=== PATIENT | female | born 1965 | race Two or more races ===

== ENCOUNTER 2016-11-09 19:58 | Inpatient (IN) | payer MEDICAID ==
[~2016-11-09] VITALS: Ht 162.6 cm; Wt 75.7 kg
--- NOTE | 2016-11-09 20:04 | NUR ---
51 YO FEMALE BB RA FROM HOME. PT STATES SHE HAD A SYNCOPE EPISODE WHILE HAVING A BOWL MOVEMENT. PT DENIES CP/SOB AT THIS TIME, DENEIS TRAUMA. PT GOWNED, PALCED ON CARDIAC MOPNITOR. AWAITING ORDERS FROM PROVIDER, WILL CONTINUE TO MONITOR
--- NOTE | 2016-11-09 20:10 | NUR ---
MD JEREZM AT BED SIDE FOR EVAL
[2016-11-09] MEDS ORDERED: ONDANSETRON HCL/PF 4 MG/2 ML VIAL ONE (20:26)
[2016-11-09] MEDS ORDERED: IV NS 0.9% 1,000 ML BAG IV ONE ×2 (20:30→21:30)
[2016-11-09] MEDS ORDERED: ONDANSETRON HCL/PF - ER 4 MG/2 ML VIAL IV ONE (20:30)
[2016-11-09 20:45] LABS: BASOPHILS # (AUTO) 0.6 /CMM (0.0-0.2); BASOPHILS % (AUTO) 1.6 % (0.0-2.0); EOSINOPHILS # (AUTO) 0.1 /CMM (0.0-0.7); EOSINOPHILS % (AUTO) 0.2 % (0.0-6.0); HEMATOCRIT 48 % (33-45); HEMOGLOBIN 16.3 g/dL (11.5-14.8); LYMPHOCYTES # (AUTO) 2.6 /CMM (0.8-4.8); LYMPHOCYTES % (AUTO) 7.3 % (20.0-44.0); MEAN CORPUSCULAR HEMOGLOBIN 30 PG (26.0-33.0); MEAN CORPUSCULAR HGB CONC 34 g/dl (31.0-36.0); MEAN CORPUSCULAR VOLUME 89 fL (82-100); MONOCYTES # (AUTO) 2.6 /CMM (0.1-1.30); MONOCYTES % (AUTO) 7.5 % (2.0-12.0); NEUTROPHILS # (AUTO) 29.1 /CMM (1.8-8.9); NEUTROPHILS % (AUTO) 83.4 % (43.0-81.0); PLATELET COUNT (AUTO) 449 /CMM (150-450); RDW COEFFICIENT OF VARIATION 12.1 (11.5-15.0); RED BLOOD CELL COUNT(AUTO) 5.43 MIL/uL (4.0-5.2)
[2016-11-09 20:59] LABS: ALBUMIN 5.1 g/dL (3.4-5.0); BILIRUBIN,DIRECT 0.1 mg/dL (0.0-0.2); BILIRUBIN,TOTAL 0.3 mg/dL (0.2-1.0); CALCIUM, SERUM 10.4 mg/dL (8.5-10.1); CREATININE 1.3 mg/dL (0.6-1.3); POTASSIUM 3.9 mmol/L (3.5-5.1); TOTAL PROTEIN, SERUM 8.9 g/dL (6.4-8.2)
--- NOTE | 2016-11-09 21:00 | NUR ---
PATIENT AMBULATED TO RESTROOM FOR URINE SAMPLE. PT UNABLE TO PROVIDE SAMPLE AT THIS TIME. MD KRAUS NOTIFIED
[2016-11-09] MEDS ORDERED: CIPROFLOXACIN IV RTU 400 MG in PREMIX 1 EA IV STA (21:05)
--- NOTE | 2016-11-09 21:06 | NUR ---
PATIENT TRANSPORTED TO CT VIA GURNEY BY RADIOLOGY TEAM
[2016-11-09] MEDS ORDERED: CIPROFLOXACIN IV RTU 200 ML IV ONE (21:16)
[2016-11-09] MEDS ORDERED: METRONIDAZOLE 500MG/ NS 100ML 100 ML IV ONE (21:16)
[2016-11-09] MEDS ORDERED: FLAGYL/NS RTU 500 MG/100 ML PIGGYBACK IV ONE (21:30)
[2016-11-09 21:40] LABS: BAND % (MANUAL) 6 % (0.0-5.0); LYMPHOCYTES % (MANUAL) 2 % (16-48); MONOCYTES % (MANUAL) 8 % (0-11.0); NEUTROPHILS % (MANUAL) 84 (42-76)
[2016-11-09 21:40] LABS: APPEARANCE,URINE Clear (CLEAR); BILIRUBIN,URINE SMALL (NEGATIVE); BLOOD, URINE Trace-lysed Ery/uL (NEGATIVE); COLOR,URINE Yellow (YELLOW); KETONES,URINE Trace (NEGATIVE); LEUKOCYTE ESTERASE ,URINE Negative (NEGATIVE); NITRITE, URINE Negative (NEGATIVE); PROTEIN,URINE 100 mg/dl (NEGATIVE); UGLUCOSE Negative (NEGATIVE); UROBILINOGEN,URINE 0.2 EU/dL (0.2)
[2016-11-09 21:48] LABS: BACTERIA,URINE Few /HPF (None Seen); RBC,URINE 2-3/HPF /HPF (0-2); SQUAMOUS EPITHELIAL CELL,UR Moderate /HPF (None Seen); WBC,URINE 0-2 /HPF (0-3)
[2016-11-09 21:49] LABS: COARSE GRANULAR CASTS,URINE Few /LPF (None Seen); MUCUS,URINE Many /LPF (None Seen); URINE AMORPHOUS URATE Few /HPF (None Seen)
--- NOTE | 2016-11-09 22:42 | NUR ---
PT TRANSPORTED TO [facility] BED BY EMT WITHOUT INCIDENT
[2016-11-09 23:00] VITALS: BP 121/68
[2016-11-09 23:10] VITALS: BP 121/68
[2016-11-09] MEDS ORDERED: METF500T4 PO (23:51)
[2016-11-09] MEDS ORDERED: ENAL20TA PO (23:51)
--- NOTE | 2016-11-09 23:56 | NUR ---
MS/RN NOTES RECEIVED PT IN STABLE CONDITION. AA&OX 4, UPPER SORBIAN SPEAKING. BREATHING EVENLY ON RA. L AC IV #18G WITH CIPRO IV INFUSING FROM ER. SKIN INTACT, VOIDING WELL, AMBULATING WITH STEADY GAIT. NO CONCERNS MADE. NO C/O ABDOMINAL PAIN, DIARRHEA, VOMITING AT THIS TIME. PT STATES WHEN SHE CAME BACK FROM [facility] 1 WEEK AGO SHE WAS STRESSED D/T HER MOTHER PASSING AWAY. SHE HAD ALLERGIES, DIARRHEA, FEVER AND STARTED COUGHING WITH WHITE PHLEGM UNTIL NOW. SHE TOOK ACETAMINOPHEN AT THAT TIME FOR FLU SYMPTOMS SHE STATED. NO DISTRESS NOTED. BED AT LOWEST POSITION AND LOCKED, HOB SEMI MORA, SIDE TABLE AND CALL SUBRAMANIAN WITHIN REACH. WILL CONTINUE TO MONITOR. FAMILY AT BEDSIDE. JULIANA MENENDEZ, PERSONNEL CONSULTANT.
--- NOTE | 2016-11-10 00:10 | NUR ---
MS/RN NOTES LAB ([facility]) CALLED FOR LACTIC ACID 3.4. WILL LET DR JOHNSON AWARE, AWAITING CALL BACK FOR ADMITTING ORDERS.
[2016-11-10] MEDS ORDERED: ACETAMINOPHEN 325 MG TABLET PO PRN (02:00)
[2016-11-10] MEDS ORDERED: MORPHINE SULFATE INJ 2 MG/ML DISP.SYRIN IV PRN (02:00)
[2016-11-10] MEDS ORDERED: Z GUARD REMEDY 2 OZ OINT TP PRN (02:00)
[2016-11-10] MEDS ORDERED: CIPROFLOXACIN IV RTU 400 MG in PREMIX 1 EA IV SCH (02:00)
[2016-11-10] MEDS ORDERED: ONDANSETRON HCL/PF 4 MG/2 ML VIAL IVP PRN (02:00)
[2016-11-10] MEDS ORDERED: Potassium Chloride 10 MEQ in IV NS 0.9% 1,000 ML IV PRN (02:30)
[2016-11-10] MEDS ORDERED: METRONIDAZOLE 500MG/ NS 100ML 100 ML IV ONE (02:44)
[2016-11-10 04:00] VITALS: BP 97/61
[2016-11-10] MEDS: Potassium Chloride 20 MEQ in IV NS 0.9% 1,000 ML IV PRN ×2 (04:06→20:16)
--- NOTE | 2016-11-10 06:30 | NUR ---
MS/RN NOTES STOOL SPECIMEN COLLECTED, LABELED AND PLACED IN REFRIGERATOR, AWAITING FOR LAB PICK-UP.
[2016-11-10 06:55] LABS: BASOPHILS % (AUTO) 0.3 % (0.0-2.0); EOSINOPHILS % (AUTO) 0.1 % (0.0-6.0); HEMATOCRIT 34 % (33-45); HEMOGLOBIN 11.8 g/dL (11.5-14.8); LYMPHOCYTES # (AUTO) 1.8 /CMM (0.8-4.8); LYMPHOCYTES % (AUTO) 11.3 % (20.0-44.0); MEAN CORPUSCULAR HEMOGLOBIN 30 PG (26.0-33.0); MEAN CORPUSCULAR HGB CONC 35 g/dl (31.0-36.0); MEAN CORPUSCULAR VOLUME 88 fL (82-100); MONOCYTES # (AUTO) 0.8 /CMM (0.1-1.30); NEUTROPHILS # (AUTO) 13.1 /CMM (1.8-8.9); NEUTROPHILS % (AUTO) 83.3 % (43.0-81.0); PLATELET COUNT (AUTO) 326 /CMM (150-450); RDW COEFFICIENT OF VARIATION 12.8 (11.5-15.0); WHITE BLOOD COUNT (AUTO) 15.8 K/uL (4.3-11.0)
[2016-11-10] MEDS ORDERED: DEXTROSE 50%-WATER 50 ML DISP.SYRIN IV PRN (07:00)
--- NOTE | 2016-11-10 07:05 | NUR ---
MS/RN NOTES IVF IN PROGRESS. NO EPISODES OF VOMITING. BM X1 WATERY, SENT TO LAB PER ORDER INCLUDING FOR GIARDIA ANTIGEN. DENIES PAIN AND SLEPT MOST OF NIGHT. ALL NEEDS MET. SIDE TABLE AND CALL SUBRAMANIAN WITHIN REACH. WILL ENDORSE TO AM SHIFT FOR CONTINUITY OF CARE INCLUDING INSULIN ADMINISTRATION FOR BS OF 140. NO CONCERNS MADE AND PATIENT STABLE.
[2016-11-10 07:23] LABS: CALCIUM, SERUM 8.6 mg/dL (8.5-10.1); MAGNESIUM 1.8 mg/dL (1.8-2.4); PHOSPHORUS 4.6 mg/dL (2.5-4.9); POTASSIUM 4.1 mmol/L (3.5-5.1)
--- NOTE | 2016-11-10 07:58 | NUR ---
MED SURGE RN: INITIAL NOTE RECEIVED PT ALERT NAD ORIENTED X4. NO DISTRESS NOTED. NO PAIN NOTED. NO SOB NOTED. L AC #18 RUNNING NS 20MEQ KCL AT 100ML/HR. SITE CLEAR. NO REDNESS, NO INFILTRATION NOTED. NO N/V NOTED. RESTING COMFORTABLY IN BED. CALL LIGHT WITHIN REACH.
[2016-11-10 08:00] VITALS: BP 97/58
--- NOTE | 2016-11-10 08:20 | NUR ---
MS/RN NOTES SPOKE TO PING IN PHARMACY REGARDING FLAGYL SCHEDULED FOR 0200 THIS MORNING. IT WAS EARLY TO GIVE, LAST ONE WAS GIVEN 2135, THEREFORE GAVE NEXT DOSE @ 0424.
[2016-11-10] MEDS: ENALAPRIL MALEATE (10 MG) 10 MG TABLET PO SCH ×2 (08:40→21:00)
[2016-11-10] MEDS: PANTOPRAZOLE 40 MG TABLET.DR PO SCH (08:40)
[2016-11-10] MEDS: METFORMIN 500 MG TABLET PO SCH (08:40)
[2016-11-10] MEDS: BLOOD SUGAR DIAGNOSTIC 1 EACH STRIP IN SCH ×4 (08:47→21:32)
[2016-11-10] MEDS: INSULIN REGULAR, HUMAN 100 UNIT/ML 3 ML VIAL SQ PRN ×2 (08:47→21:34)
[2016-11-10] MEDS: CIPROFLOXACIN IV RTU 400 MG in PREMIX 1 EA IV SCH ×2 (08:53→20:16)
[2016-11-10] MEDS: METRONIDAZOLE 500MG/ NS 100ML 500 MG in PREMIX 1 EA IV SCH ×2 (13:25→21:32)
[2016-11-10 15:09] LABS: OCCULT BLOOD STOOL POSITIVE (NEGATIVE)
[2016-11-10 16:00] VITALS: BP 97/61
--- NOTE | 2016-11-10 18:00 | NUR ---
PT RESTING IN BED TALKING TO FAMILY MEMBERS.DENYING PAIN OR DISTRESS.
--- NOTE | 2016-11-10 19:30 | NUR ---
RN NOTES RECEIVED PATIENT IN BED AWAKE, AO X 3, ABLE TO MAKE NEEDS KNOWN. NO ACUTE DISTRESS NOTED. DENIES ANY PAIN AT THIS TIME. IV SITE PATENT, INTACT; IVF INFUSING ORDERED. SAFETY REMINDERS GIVEN. ON LOW BED WITH BILATERAL UPPER SIDE RAILS UP. CALL LIGHT WITHIN EASY REACH. WILL CONTINUE TO MONITOR.
[2016-11-10 20:00] VITALS: BP 103/68
[2016-11-10 20:36] VITALS: BP 103/68
[2016-11-11] MEDS: METRONIDAZOLE 500MG/ NS 100ML 500 MG in PREMIX 1 EA IV SCH ×2 (05:10→12:15)
--- NOTE | 2016-11-11 06:28 | NUR ---
RN NOTES PATIENT IN BED ASLEEP, EASILY AROUSABLE; RESPIRATIONS EVEN. NO SIGNS OF PAIN NOTED. DUE MEDS GIVEN WITH NO ASE NOTED. NEEDS ATTENDED. NO SYMPTOMS OF HYPER/HYPOGLYCEMIA. SAFETY PRECAUTIONS AND COMFORT MEASURES IN PLACE. WILL GIVE REPORT TO DAY SHIFT FOR CONTINUITY OF CARE.
[2016-11-11] MEDS: BLOOD SUGAR DIAGNOSTIC 1 EACH STRIP IN SCH ×2 (06:43→12:12)
[2016-11-11] MEDS: PANTOPRAZOLE 40 MG TABLET.DR PO SCH (06:43)
[2016-11-11 07:46] LABS: BASOPHILS % (AUTO) 0.3 % (0.0-2.0); EOSINOPHILS # (AUTO) 0.1 /CMM (0.0-0.7); EOSINOPHILS % (AUTO) 0.7 % (0.0-6.0); HEMATOCRIT 37 % (33-45); HEMOGLOBIN 12.3 g/dL (11.5-14.8); LYMPHOCYTES # (AUTO) 2.4 /CMM (0.8-4.8); LYMPHOCYTES % (AUTO) 25.4 % (20.0-44.0); MEAN CORPUSCULAR HEMOGLOBIN 30 PG (26.0-33.0); MEAN CORPUSCULAR HGB CONC 33 g/dl (31.0-36.0); MEAN CORPUSCULAR VOLUME 89 fL (82-100); MONOCYTES # (AUTO) 0.6 /CMM (0.1-1.30); MONOCYTES % (AUTO) 6.2 % (2.0-12.0); NEUTROPHILS # (AUTO) 6.4 /CMM (1.8-8.9); NEUTROPHILS % (AUTO) 67.4 % (43.0-81.0); PLATELET COUNT (AUTO) 323 /CMM (150-450); RDW COEFFICIENT OF VARIATION 12.9 (11.5-15.0); RED BLOOD CELL COUNT(AUTO) 4.15 MIL/uL (4.0-5.2); WHITE BLOOD COUNT (AUTO) 9.5 K/uL (4.3-11.0)
--- NOTE | 2016-11-11 07:50 | NUR ---
MED SURGE RN: INITIAL NOTE RECEIVED PT A/O X4. NO DISTRESS NOTED. NO PAIN NOTED. NO SOB NOTED. IV RUNNING NS KCL 20 MEQ @ 100ML/HR. SITE CLEAR. NO CHANGE IN CONDITIONS NOTED. RESTING COMFORTABLY IN BED. CALL LIGHT WITHIN REACH.
[2016-11-11 07:58] LABS: CALCIUM, SERUM 8.7 mg/dL (8.5-10.1); CREATININE 0.9 mg/dL (0.6-1.3); PHOSPHORUS 3.7 mg/dL (2.5-4.9); POTASSIUM 4.2 mmol/L (3.5-5.1)
[2016-11-11 08:00] VITALS: BP 121/69
[2016-11-11 08:09] LABS: THYROID STIMULATING HORMONE 1.833 uIU/mL (0.358-3.74)
[2016-11-11 08:24] VITALS: BP 121/69
[2016-11-11] MEDS: CIPROFLOXACIN IV RTU 400 MG in PREMIX 1 EA IV SCH (08:24)
[2016-11-11] MEDS: METFORMIN 500 MG TABLET PO SCH (08:24)
[2016-11-11] MEDS: ENALAPRIL MALEATE (10 MG) 10 MG TABLET PO SCH (08:24)
[2016-11-11] MEDS ORDERED: CIPR-262 PO (10:25)
--- NOTE | 2016-11-11 13:55 | NUR ---
MED SURGE RN: DISCHARGE NOTE PT STABLE. TOOK ALL MEDICATIONS ON TIME. NO ADVERSE REACTIONS NOTED. NO PAIN NOTED. VS STABLE. BG STABLE. NO INSULIN GIVEN DURING SHIFT. NO DISTRESS. NO SOB. ATE BREAKFAST AND LUNCH WITH NO N/V NOTED. IV LINE REMOVED ON RIGHT ARM. NO REDNESS, NO INFILTRATION NOTED. ALL DISCHARGE INSTRUCTIONS GIVEN AND ALL PAPER WORK SIGNED. NEW ORDER OF CIPRO 500MG BID SENT OT PHARMACY. VERIFIED ORDER WITH [facility] [place]. ALL BELONGINGS ACCOUNTED FOR. AMBULATED WITH OUT ASSISTANCE TO PRIVATE CAR.
== END 2016-11-11 13:50 | disposition home or self-care (01) | DRG 720 ==
LOC: ER 19:58 → MED 22:33
PROVIDERS: ADMIT Nurse Practitioner Acute Care; ATTEND Nurse Practitioner Acute Care
DX: A41.9 Sepsis, unspecified organism (principal); N17.0 Acute kidney failure with tubular necrosis; E87.2 Acidosis; I10 Essential (primary) hypertension; A04.9 Bacterial intestinal infection, unspecified; E11.9 Type 2 diabetes mellitus without complications; N05.9 Unspecified nephritic syndrome with unspecified morphologic changes; E86.0 Dehydration
CPT/HCPCS: 36415; 71250-TC; 80048-TC; 80061-TC; 80076-TC; 81000-TC; 82272-TC; 82962-TC; 83540-TC; 83605-TC; 83690-TC; 83735-TC; 84100-TC; 84443-TC; 85025-TC; 86160; 87040-TC; 87045-TC; 87081-TC; 89055; A4216; A4606; J0744; J1815; J2405; J3480; J3490; J7030; Z7610